=== PATIENT | female | born 1935 | race Caucasian/White ===

== ENCOUNTER 2017-03-02 09:37 | Emergency (ER) | payer OTHER, MEDICARE ==
[2017-03-02] MEDS ORDERED: NORMAL SALINE 10 ML SYRINGE FLUSH IVP PRN (09:47)
[2017-03-02 09:51] VITALS: RESP 14; TEMP 98.4
--- NOTE | 2017-03-02 09:55 | PDOC ---
Foot / Ankle Injury - General Chief Complaint: Lower Extremity Problem/Injury Stated Complaint: leg pain Date Seen by Provider: 03/02/17 Time Seen by Provider: 09:50 Source: POSITIVE: Patient, Other (Family) Exam Limitations: POSITIVE: No limitations Nurse's Notes Reviewed & Considered: Yes - History of Present Illness Initial Comments: Samanta is an 81-year-old female who presents to the emergency department with multiple complaints. 1 she complains of right foot and ankle pain and swelling. 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 She has had off-and-on issues since this happened back in the early . Over the last 24 hours the patient had been worse. Worse palpation. Worse with ambulation. Radiates up towards the leg. It is very swollen yesterday somewhat down today. It sounds like have been somewhat red. She was sent here from her primary providers for evaluation of possible DVT. Shortness of breath. She did also mention some transient abdominal pain last week. Mostly in the epigastrium. No exasperate or relieving factors no radiation mild overall severity. She reports she has a history of a prior gastric ulcer and was wondering if that may have come back. She reportedly had a temperature of 100.6. Family is worried potentially she had a urinary tract infection. She has had a history of prior UTIs that have minimal to no symptoms other than fever. No coughing. Have you received a tetanus shot in the past 10 years?: Yes - Patient Allergies Allergies/Adverse Reactions: Allergies Allergy/AdvReac Type Severity Reaction Status Date / Time No Known Drug Allergies Allergy NOT Verified 03/02/17 10:22 APPLICABLE - Patient Home Medications Home Medications: Home Medications FA/Mv,Ca,Fe,Min/Lycopene/Lut [Centrum Tablet] 1 tab ORAL QD tab 06/22/12 Aspirin EC 325 mg PO DAILY #30 tablet 05/26/15 Vit A/C/E AC/Znox/Cupric Oxide [Eye Vitamin-Minerals Tablet] 1 each PO DAILY tab 08/03/16 Levothyroxine Sodium [Synthroid] 1 tab PO DAILY #90 tab 09/28/16 Nebivolol HCl [Bystolic] 5 mg PO DAILY #90 tab 09/28/16 Omeprazole 1 cap PO DAILY #90 cap 09/28/16 Pravastatin Sodium [Pravachol] 1 tab PO QHS #90 tab 09/28/16 Cephalexin [Keflex] 500 mg PO QID 10 Days 03/02/17 Tramadol HCl 50 mg PO BID 03/02/17 Past Medical History - heen HEENT History: Macular Degeneration, Cataracts, Hard of Hearing, Other (please comment) Additional HEENT History: BILATERAL HEARING AIDES Cardiovascular History: Hypertension, Hyperlipidemia Respiratory History: Denies History Gastrointestinal History: Other (please comment) Additional Gastrointestinal History: 1989 Ruptured Appendix. Bleeding stomach ulcer Genitourinary History: Denies History Additional Genitourinary History: history of urgency/frequency Endocrine History: Denies History Musculoskeletal History: Arthritis Prosthesis or Implant: Yes (BILATERAL HIP AND KNEE REPLACEMENTS) Neurological History: Denies History Blood Disorders: Denies History Psychiatric History: Denies History History of Sexually Transmitted Diseases: No Female Reproductive History: Denies History Obstetrical History: Denies History Cancer History: Denies History In Past Year Been Physically Harmed or Verbally Threatened: No History of MDRO: Yes History of Other Communicable Diseases: No Tobacco Use: Never Smoker Alcohol Use: Occasionally Substance Use Type: None Previous Surgical History: Yes Type / Date of Surgery: T&A/ APPY LAMI/ TOE SX/ BILAT KIYA AND TKA/ VERTEBRAL FUSION/ GOITER REMOVAL Anesthesia Reactions: No Malignant Hyperthermia: No Significant Family History: No pertinent family hx Past Medical History Reviewed: Reviewed - No Changes ROS - Limitations ROS Limitations: No Limitations Constitution: REPORTS: Fever Cardiovascular: REPORTS: Denies Cardiac Symptoms Respiratory: REPORTS: Denies Resp Symptoms Neurological: REPORTS: Denies Neuro Symptoms Gastrointestinal: REPORTS: Abdominal Pain Endocrine: REPORTS: Denies Symptoms Musculoskeletal: REPORTS: Other (Right foot pain) Genitourinary: REPORTS: Other (Possible UTI) Eyes: REPORTS: Denies Symptoms ENT: REPORTS: Denies Symptoms Skin: REPORTS: Denies Skin Symptoms Lympathic: REPORTS: Denies Lympathic Symptoms Psychiatric: POSITIVE: Denies Psych Symptoms Foot / Ankle Exam - General Appearance General Appearance: POSITIVE: Alert, Cooperative, No Acute Distress, No Evidence of Trauma - Extremities Foot: POSITIVE: Other (there is swelling and warmth around the right ankle joint. There is mild tenderness palpation. She does have good range of motion without significant pain. Palpable dorsalis pedis pulses bilaterally.) Ankle: POSITIVE: Other (swelling of the right ankle with warmth.) Neuro: POSITIVE: Other (decreased sensation which is at baseline for patient.) Vascular: POSITIVE: Other (palpable dorsalis pedis pulses bilaterally) Skin: POSITIVE: Other (warmth to palpation of the right ankle which is greater when compared to the left.) - HEENT HEENT: POSITIVE: Head Inspection Nml, Eyes Inspection Nml, Ears Inspection Nml, Nose Inspection Nml, Oral/Dental Inspect. Nml - Neck / Back Neck / Back: Normal Inspection - Respiratory / CVS Respiratory / CVS: POSITIVE: Chest Non-Tender, No Respiratory Distress, Heart Sounds Normal, Regular Rate/Rhythm, Breath Sounds Normal - Abdomen Abdomen: Soft: (All Quadrants), Normal Bowel Sounds: (All Quadrants), Denies Tenderness: (All Quadrants), No Splenomegaly: (All Quadrants), No Hepatomegaly: (All Quadrants), No Guarding: (All Quadrants), No Rebound: (All Quadrants) Foot / Ankle Progress - Results Reviewed by me Xrays/CTs/US Reviewed by me: Yes Lab Results:: Laboratory Results 03/02/17 03/02/17 Range/Units 10:05 10:34 WBC 8.95 (4.8-10.8) 10^3/uL RBC 3.81 L (4.20-5.40) 10^6/uL Hgb 12.5 (12.0-16.0) g/dL Hct 37.3 (37.0-47.0) % MCV 97.9 (81-99) FL MCH 32.8 H (27-31) PG MCHC 33.5 (33-37) g/dL RDW Std Deviation 44.7 (39-50) fL RDW Coeff of Aimee 12.9 (11.5-14.5) % Plt Count 190 (140-350) 10*3/uL MPV 7.6 (7.4-12.2) FL Immature Gran % (Auto) 0.3 (0-5) % Neut % (Auto) 85.9 H (50-80) % Lymph % (Auto) 4.9 L (10-50) % [place]in % (Auto) 8.6 (5-15) % Eos % (Auto) 0.2 (0-8) % Baso % (Auto) 0.1 (0-1) % Immature Gran # (Auto) 0.03 10*3/UL Neut # (Auto) 7.68 10*3/UL Lymph # (Auto) 0.44 10*3/uL Hardin # (Auto) 0.77 (0.3-0.8) 10*3/UL Eos # (Auto) 0.02 10*3/UL Baso # (Auto) 0.01 10*3/UL WBC Morphology Comment Normal morphology (NORM) Plt Morphology Comment Normal morphology (NORM) RBC Morph Comment Normal morphology (NORM) ESR 26 H (0-20) MM/HR Sodium 134 L (135-145) meq/L Potassium 3.4 L (3.8-5.2) meq/L Chloride 96 L (98-112) meq/L Carbon Dioxide 27 (23-33) meq/L Anion Gap 11 (5-20) BUN 20 (7-22) mg/dL Creatinine 0.8 (0.50-1.20) mg/dL Estimated GFR (>60 ml/min/1.73m(2)) BUN/Creatinine Ratio 25.00 H (6-20) Glucose 177 H (78-110) mg/dL Calculated Osmolality 284.0 (267-292) mOsm/kg Calcium 9.1 (8.7-10.7) mg/dL Total Bilirubin 1.1 (0.3-1.2) mg/dL AST 28 (8-39) IU/L ALT 16 (9-52) IU/L Alkaline Phosphatase 56 (38-126) IU/L C-Reactive Protein 22.7 H (0.0-0.9) mg/dL Total Protein 7.3 (6.1-8.0) g/dL Albumin 4.0 (3.5-4.8) g/dL Globulin 3.3 (2.50-4.10) g/dL Albumin/Globulin Ratio 1.20 L (1.3-2.0) mg/g Lipase 142 (23-300) IU/L Ur Collection Type Clean catch urine Urine Color Yellow Urine Clarity Clear (CLEAR) Urine pH 6.0 (5.0-8.5) Ur Specific [place] 1.020 (1.005-1.030) Urine Protein 100 (NEG) mg/dl Urine Glucose (UA) Negative (NEG) mg/dL Urine Ketones Trace (NEG) Urine Occult Blood Trace-intact (NEG) Urine Nitrate Negative (NEG) Urine Bilirubin Negative (NEG) Urine Urobilinogen 1.0 (0.2) mg/dL Ur Leukocyte Esterase Small (NEG) Urine RBC 0-2 (NONE) /hpf Urine WBC 4-6 (NONE) Ur Squamous Epith Cells Few (NONE) Ur Renal Epithelial Cell None (NONE) Urine Crystals None Urine Bacteria Few (NONE) Urine Casts Few Urine Mucus Few (NONE) Urine Trichomonas None (NONE) Urine Yeast None (NONE) - Patient's Progress MDM / ED Course: Samanta is a 81-year-old female who presents to the emergency department with multiple complaints. Vital signs are notable for hypertension and examination him strict pain and swelling in the right ankle. Differential diagnosis includes but is not limited to DVT, septic joint, arthritis, infection. CBC is notable for no significant leukocytosis. Her C-reactive protein was elevated sedimentation rate was minimally elevated. Does not have any convincing evidence of infection with just a few WBCs nitrate negative and trace leukocyte esterase. There was some mucus and squamous epithelial cells. Likely slightly contaminated catch. X-ray does not demonstrate any acute new findings. There is some soft tissue swelling. No significant evidence of effusion in the joint. Patient's duplex ultrasound demonstrates no evidence of DVT. I did have a discussion with patient and daughter about risks and benefits of arthrocentesis to ensure that there is no infection in the joint fluid. They prefer not to have arthrocentesis at this time. Given that she does have good range of motion in that ankle septic arthritis is unlikely. With some erythema and warmth across the soft tissues of the foot this may be an early cellulitis. We will start her on Keflex and have her follow-up primary care provider tomorrow for repeat evaluation. With regards to the transient abdominal pain chemistry and lipase were negative. And her examination is reassuring. Low suspicious for serious intra-abdominal pathology. Patient Care Time - Estimated PCT Patient Care Time (In Minutes): 45 Vital Signs - Recent Vital Signs Vital Signs: Vital Signs (Last 8 hours) Temp Pulse Resp BP Pulse Ox 03/02/17 09:37 98.4 F 81 14 189/112 97 - VS Reviewed Vital Signs Reviewed: Yes Discharge Clinical Impression: Ankle pain Cellulitis Qualifiers: Site of cellulitis: extremity Site of cellulitis of extremity: lower extremity Laterality: right Qualifier Code: (L03.115) Cellulitis of right lower limb Discharge Disposition: Discharged to Home Condition: Good Prescriptions / Orders: Cephalexin [Keflex] 500 mg PO QID 10 Days Additional Instructions: Thank you for coming to the emergency department. It appears that you may have a infection in the soft tissue around the ankle. Please take antibiotics as prescribed. Please keep the foot elevated as much as possible. Please recheck with her primary doctor within the next 24-48 hours for reevaluation. Return to the emergency department for any worsening symptoms.
[2017-03-02 10:17] LABS: BASOPHILS # (AUTO) 0.01 10*3/UL; BASOPHILS % (AUTO) 0.1 % (0-1); EOSINOPHILS # (AUTO) 0.02 10*3/UL; EOSINOPHILS % (AUTO) 0.2 % (0-8); HEMATOCRIT 37.3 % (37.0-47.0); HEMOGLOBIN 12.5 g/dL (12.0-16.0); LYMPHOCYTES # (AUTO) 0.44 10*3/uL; MEAN CORPUSCULAR HEMOGLOBIN 32.8 PG (27-31); MEAN CORPUSCULAR HGB CONC 33.5 g/dL (33-37); MEAN CORPUSCULAR VOLUME 97.9 FL (81-99); MEAN PLATELET VOLUME 7.6 FL (7.4-12.2); MONOCYTES # (AUTO) 0.77 10*3/UL (0.3-0.8); MONOCYTES % (AUTO) 8.6 % (5-15); NEUTROPHILS # (AUTO) 7.68 10*3/UL; NEUTROPHILS % (AUTO) 85.9 % (50-80); RED BLOOD COUNT 3.81 10^6/uL (4.20-5.40)
[2017-03-02 10:25] LABS: CALCIUM 9.1 mg/dL (8.7-10.7)
[2017-03-02] MEDS ORDERED: Sodium Chloride 0.9% 1,000 ML PRIMARY IV ONE (10:26)
[2017-03-02 10:38] LABS: C-REACTIVE PROTEIN 22.7 mg/dL (0.0-0.9)
[2017-03-02 10:45] LABS: PLATELET MORPHOLOGY COMMENT NORMAL MORPHOLOGY (NORM); RBC MORPHOLOGY COMMENT NORMAL MORPHOLOGY (NORM); WBC MORPHOLOGY COMMENT NORMAL MORPHOLOGY (NORM)
[2017-03-02 10:45] LABS: BILIRUBIN,URINE NEGATIVE (NEG); COLOR,URINE YELLOW; GLUCOSE, URINE (UA) NEGATIVE (NEG); NITRATE,URINE NEGATIVE (NEG); OCCULT BLOOD,URINE Trace-intact (NEG); PROTEIN,URINE 100 mg/dl (NEG)
--- NOTE | 2017-03-02 10:57 | DI ---
VENOUS DOPPLER ULTRASOUND OF THE RIGHT LOWER EXTREMITY, 03/02/2017 9:49 AM: Clinical History: Right leg pain and swelling. Previous Exam: None. Technique: 2D real-time imaging is supplemented with color Doppler ultrasound. Compression and augmen tation maneuvers were performed. The deep venous system from the groin to the popliteal fossa is norm al. The greater saphenous vein is normal. Reading: Negative venous Doppler ultrasound of the right lower extremity.
[2017-03-02 10:59] LABS: CLARITY,URINE CLEAR (CLEAR)
[2017-03-02 11:00] LABS: BACTERIA,URINE FEW; RBC,URINE 0-2 /hpf; SQUAMOUS EPITHELIAL CELL,UR FEW; URINE CASTS FEW; URINE SAMPLE TYPE CLEAN CATCH URINE
--- NOTE | 2017-03-02 11:05 | DI ---
RIGHT ANKLE, 03/02/2017 9:47 AM: Clinical History: Pain and swelling. Previous Exam: None at this facility. 3 views are submitted. There is marked soft tissue prominence over the lateral malleolar region and m ost of the soft tissue density is of fatty tissue density. There is chronic subluxation of the calcan eus laterally relative to the talus. No acute fracture is identified. There are calcifications corres ponding to the superficial deltoid ligament with calcifications in the distal aspect of the interosse ous membrane, the Achilles tendon, and probably also in the plantar fascia. There is a large os edgar num. Remodeling of the articular surface of the distal tibia is present. The patient is status post a mputation of the first ray. Readin. No definite acute fracture or dislocation is identified. 2. There is chronic subluxation of the talus and calcaneus with remodeling of the articular surface of the tibia. 3. Status post resection of the first ray. 4. Calcifications are present in the Achilles tendon, the superficial deltoid ligament, and probably also the plantar fascia. Comment: If a more definitive evaluation of the abnormalities of the foot is required clinically, the n consider a CT scan of the ankle and foot.
[2017-03-02 11:07] LABS: ERYTHROCYTE SEDIMENTATION RATE 26 MM/HR (0-20)
--- NOTE | 2017-03-02 11:09 | DI ---
RIGHT FOOT, 03/02/2017 9:47 AM: Clinical History: Pain and swelling. Previous Exam: None at this facility. 3 views are submitted. The patient is status post resection of the distal half of the first metatarsa l bone and the great toe. Flexion deformities are present in the third through fifth toes and the sec ond toe has been amputated. There is chronic subluxation of the calcaneus laterally with remodeling o f the tibial articular surface. Diffuse soft tissue prominence is noted over the foot, but a substant ial amount of the soft tissue prominence is secondary to subcutaneous fatty tissue. There is no perio steal new bone formation to suggest acute osteomyelitis. There is osteoporosis. As previously noted o n the ankle exam, calcifications are present in the region of the plantar fascia, the Achilles tendon , and probably in the peroneus longus tendon. Readin. There is soft tissue prominence but only the dorsal aspect of the foot shows changes that may ref lect edema. The soft tissue prominence medially and laterally is primarily caused by accumulation of subcutaneous fat. 2. Status post amputation of the second toe and status post amputation of the distal aspect of the f irst metatarsal bone and first toe. 3. Chronic subluxation of the calcaneus laterally with remodeling of the tibiotalar joint. There is a prominent os trigonum. 4. Calcifications are noted in the Achilles tendon, which probably also represents the plantar fasci a, and the peroneus longus tendon. There is no definite evidence of osteomyelitis.
[2017-03-02] MEDS ORDERED: Sodium Chloride 0.9% 1,000 ML ONE (14:49)
== END 2017-03-02 11:55 | disposition home or self-care (01) ==
LOC: ER 09:37
DX: L03.115 Cellulitis of right lower limb (principal); R06.02 Shortness of breath; R50.9 Fever, unspecified; R10.13 Epigastric pain
CPT/HCPCS: 73610; 73630; 80053; 81001; 83690; 85025; 85652; 86140; 93971; 99283; J7030

== ENCOUNTER → 2017-03-08 | Outpatient (CLI) | payer OTHER, MEDICARE | LOC: MMPC 11:11 | PROVIDERS: ATTEND Internal Medicine | DX: M53.9 Dorsopathy, unspecified (principal); L03.115 Cellulitis of right lower limb; I10 Essential (primary) hypertension; M15.9 Polyosteoarthritis, unspecified | CPT/HCPCS: 99214 ==

== ENCOUNTER → 2017-03-11 | Outpatient (CLI) | payer OTHER, MEDICARE ==
--- NOTE | 2017-03-11 11:20 | DI ---
MRI LUMBAR SPINE SCAN WITHOUT IV CONTRAST, 03/11/2017 8:43 AM: Clinical History: Sciatica associated with disorder of the lumbar spine. Previous Exam: None. Technique: Sagittal and axial T2 weighted; sagittal T1 weighted and T2 STIR; and axial PD. The vertebral bodies are of normal height and size. Severe disc space narrowing with desiccation murcia ge is present at every lumbar level. The cord terminates at L1, a focus of hyperintensity in the righ t side of the conus medullaris consistent with a syrinx. An MRI scan of the thoracic spine is recomme nded to evaluate the remainder of the spinal cord. The T10-11 disc space is normal. T11-12 has a circ umferentially bulging but not herniated disc without canal or neural foraminal stenosis. T12-L1 has a right focal disc herniation that extends below the disc space behind the body of L1 and can cause im pingement of the right L1 nerve root as it enters into the right lateral recess of L1. There is no ca nal or neural foraminal stenosis. The disc spaces from L1-2 through L5-S1 all have a circumferentiall y bulging but not herniated discs without canal or neural foraminal stenosis. Degenerative arthritic changes are present in all of the apophyseal joints bilaterally between L1-2 through L5-S1 with mild to moderate hypertrophy of the ligamentum flavum. Readin. There is a fluid-filled small cavity in the right side of the conus medullaris consistent with a syrinx. An MRI scan of the thoracic spine is recommended to evaluate the remainder of the cord. 2. There is a focal disc herniation at T12-L1 and the disc fragment distends inferior to the disc sp radha behind the body of L1. This fragment can cause impingement of the right L1 nerve root as it enter s into the right lateral recess of L1. There is no canal or neural foraminal stenosis at this level. 3. There are bulging but not herniated discs without canal or neural foraminal stenosis from L1-2 th rough L5-S1, with degenerative arthritic changes in all of the apophyseal joints bilaterally. 4. The T10-11 disc space is normal.
== END ==
LOC: MRI 08:40
PROVIDERS: ATTEND Internal Medicine
DX: M54.5 Low back pain (principal); M51.24 Other intervertebral disc displacement, thoracic region; M47.817 Spondylosis without myelopathy or radiculopathy, lumbosacral region
CPT/HCPCS: 72148

== ENCOUNTER → 2017-03-17 | Outpatient (CLI) | payer OTHER, MEDICARE ==
--- NOTE | 2017-03-17 22:26 | DI ---
MRI THORACIC SPINE SCAN, 03/17/2017 10:51 AM: Clinical History: Syrinx of the spinal cord. Abnormal MRI lumbar spine scan revealed a right-sided fl uid collection in the conus medullaris indicative of a syrinx of the spinal cord. Previous Exam: None. Technique: Sagittal T1 and T2 weighted and STIR scans are supplemented with an axial T1 and T2 weight ed scans throughout the thoracic spine. The vertebral bodies are of normal height and size. Marked anterior osteophytic spurring with scleros is is present at T7-8. Except for the region of the conus, the thoracic cord is normal and shows no i ntramedullary cystic lesion to suggest a syrinx or hydromyelia. In the conus, the previously noted ri ght-sided fluid collection is noted consistent with a syrinx. There is no canal stenosis throughout t he length of the thoracic spine. Disc space narrowing is present from T4-5 to T7-8. All thoracic disc spaces show desiccation change. Ossification of the anterior longitudinal ligament is present betwee n C7-T1 and T1-2. There is no canal or neural foraminal stenosis at these levels. There are bulging b ut not herniated discs without canal or neural foraminal stenosis at T2-3 and T3-4. T4-5 through T6-7 disc spaces are normal. T7-8 and T8-9 disc spaces have bulging but not herniated discs without canal or neural foraminal stenosis. T9-10 disc space is normal. T10-11 through T12-L1 have bulging but not herniated discs without canal or neural foraminal stenosis. There is no intradural extramedullary le giuseppe. Readin. There is no syrinx in the remainder of the thoracic cord. Only the right side of the conus medull lissette has the fluid collection consistent with a syrinx. There is no intradural extramedullary lesion. 2. C7-T1 and T1-2 had midline calcific densities that probably represent ossification of the anterio r longitudinal ligament. There is no canal or neural foraminal stenosis at these 2 levels. The T2-3, T3-4, T7-8, T8-9, and T10-11 through T12-L1 all have bulging but not herniated discs without canal or neural foraminal stenosis. 3. The T4-5 through T6-7 and T9-10 disc spaces are normal.
== END ==
LOC: MRI 10:46
PROVIDERS: ATTEND Internal Medicine
DX: G95.0 Syringomyelia and syringobulbia (principal); M47.814 Spondylosis without myelopathy or radiculopathy, thoracic region
CPT/HCPCS: 72146